=== PATIENT | female | born 2005 | race African-American/Black ===

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

== ENCOUNTER 2023-02-12 13:42 | Emergency (ER) | payer MEDICAID, SELFPAY ==
[2023-02-12 13:43] VITALS: BP 150/136; PULSE 89; RESP 20; TEMP 36.1; O2SAT 100
[2023-02-12 14:52] LABS: Absolute Lymphocyte Count 0.72 X10^3/uL (0.83-4.51); Absolute Neutrophil Count 12.7 X10^3/uL (2.0-7.7); Basophil# 0.04 X10^3/uL; Basophil% 0.3 % (0-1); Hematocrit 37.8 % (37-47); Hemoglobin 13.1 g/dL (12.0-15.0); Lymphocyte # 0.72 X10^3/ul (0.83-4.51); Lymphocyte % 5.2 % (19-41); Mean Corp Hgb Conc 34.7 g/dL (32-36); Mean Corpuscular Volume 92.4 fL (81-99); Mean Platelet Vol. 9.3 fl (6.2-12.0); Monocyte# 0.35 X10^3/uL; Monocyte% 2.5 % (0-10); NRBC Flagged by Analyzer 0 % (0-5); Neutrophil # 12.65 X10^3/uL (2.7-7.7); Neutrophil % 91.4 % (47-70); Platelet Count 294 K/mm3 (150-450); RBC Distribution Width CV 11.8 % (11.6-14.6); Red Blood Count 4.09 M/mm3 (4.2-5.4); White Blood Count 13.8 K/mm3 (4.4-11.0)
[2023-02-12 14:58] LABS: Internal QC Validated? YES +Cl - CLEAR BKGD
--- NOTE | 2023-02-12 14:58 | ED.VIS.FEGU ---
HPI HPI - Female History of Present Illness Chief Complaint: Female C/O Pain Pain: Positive for Pelvic Pain and Vaginal Pain Onset: Days Context: Gradual Onset Timing: Continuous Quality: Positive for Cramping Location: Suprapubic Bleeding Issue: Negative for Vaginal bleeding, Passing clots or Passing tissue Associated Symptoms Associated Symptoms: Positive for Dysuria Test: Positive P: 0 Narrative Narrative: Presents with pelvic pain that became worse today. Patient states she was recently diagnosed as having a miscarriage. Patient states she was approximate 5 weeks . Patient states this was her first . Patient states she has not passed any tissue or clots. Patient does admit to some dysuria. Patient admits to subjective fever. Patient admits to nausea and vomiting. Patient states her pain radiates into her back. Prior similar symptoms: No PFSH PFSH Medical History no medical history no medical history Home Medications ondansetron 4 mg disintegrating tablet 4 mg PO Q8H PRN PRN Nausea #10 tabs 03/02/22 [Rx Last Taken Unknown] ondansetron 4 mg disintegrating tablet 4 mg PO Q8H PRN PRN Nausea #10 tabs 09/04/22 [Rx Last Taken Unknown] hydrocodone-acetaminophen 5-325mg 5mg-325mg 1 tab PO Q6H PRN PRN Pain 3 days #10 TABLETS 02/12/23 [Rx Last Taken Unknown] Allergy/AdvReac Type Severity Reaction Status Date / Time No Known Allergies Allergy Verified 02/12/23 13:43 Surgical History no surgical history no surgical history Social History Smoking Status: Current every day smoker tobacco type: e-cigarettes ROS ROS ED Constitutional Constitutional ED: Reports fever(s) and subjective; Denies chills Eyes Eyes: Denies blurry vision or change in vision ENT ENT ED: Denies rhinorrhea or sore throat Cardiovascular Cardiovascular: Reports chest pain; Denies palpitations Respiratory/Chest Respiratory/Chest: Denies cough or dyspnea Gastrointestinal Gastrointestinal: Reports abdominal pain, nausea and vomiting Genitourinary Genitourinary ED: Reports dysuria; Denies hematuria Musculoskeletal Musculoskeletal: Reports back pain; Denies neck pain Integumentary Denies abscess or rash Neurologic Neurologic: Denies headache(s) or weakness Allergic/Immunologic Allergic/Immunologic ED: Denies mouth swelling or urticaria EXAM Physical Exam Const Vital Signs: 02/12/23 13:43 02/12/23 16:00 Temperature 96.9 F L Temperature Source Temporal Pulse Rate 89 83 Respiratory Rate 20 H 16 Blood Pressure 150/136 H 149/100 H Blood Pressure Mean 140 116 Pulse Ox 100 98 Oxygen Delivery Method Room Air Room Air Positive well nourished and well developed General Appearance ED: well developed HEENT Reports moist mucous membranes Neck supple and no JVD Resp normal respiratory effort and clear to auscultation bilaterally Cardio regular rate and regular rhythm GI normal to inspection, nondistended, normoactive bowel sounds and soft to palpation Palpation: soft and tender LLQ, RLQ and suprapubic Extremity normal to inspection General Extremety ED: Negative for edema or tenderness General Extremity: Negative for edema Neuro oriented x3, CN's II-XII intact bilaterally and no sensory deficits noted Sensorium / Orientation: alert Motor Exam: strength 5/5 throughout Psych mental status grossly normal Skin no rashes or lesions noted MDM MDM MDM Narrative Medical decision making narrative: Differential diagnosis includes threatened miscarriage, incomplete miscarriage, urinary tract infection, pyelonephritis, and ectopic . CBC will be obtained to assess for leukocytosis and anemia. Comprehensive metabolic profile will be obtained to assess for hepatic function, renal function, and electrolyte abnormality. Quantitative hCG will be obtained to assess for level. Urinalysis will be obtained to assess for urinary tract infection or hematuria. Lab Data Attestation: I reviewed the patient's lab results. Lab results narrative: CBC was reviewed. There is a mild leukocytosis of 13.8. The remainder is within normal limits. Comprehensive metabolic profile was reviewed and was essentially within normal limits with the exception of a mildly elevated bilirubin of 1.4. Quantitative hCG was reviewed and was [id number]. Urinalysis was reviewed. There is no evidence of urinary tract infection or hematuria. Labs: Laboratory Results - last 24 hr 02/12/23 02/12/23 14:40 16:50 WBC 13.8 H RBC 4.09 L Hgb 13.1 Hct 37.8 MCV 92.4 MCH 32.0 MCHC 34.7 RDW Std Deviation 40.0 RDW Coeff of Jaclyn 11.8 Plt Count 294 MPV 9.3 Immature Gran % (Auto) 0.600 Neut % (Auto) 91.4 H Lymph % (Auto) 5.2 L [place] % (Auto) 2.5 Eos % (Auto) 0.0 Baso % (Auto) 0.3 Absolute Neuts (auto) 12.7 H Absolute Lymphs (auto) 0.72 L Nucleated RBC % 0 Sodium 136 Potassium 3.4 L Chloride 105 Carbon Dioxide 20.0 L Anion Gap 11 BUN 7 Creatinine 0.77 Est GFR (MDRD) Af Amer 124 Est GFR (MDRD) Non-Af 102 BUN/Creatinine Ratio 9.1 L Glucose 139 H Calcium 10.6 H Total Bilirubin 1.40 H AST 19 ALT 24 Alkaline Phosphatase 59 Total Protein 8.6 H Albumin 4.3 Globulin 4.3 H Albumin/Globulin Ratio 1.0 HCG, Quant 30068 H Serum , Qual POSITIVE H Urine Color Yellow Urine Clarity Sl. Cloudy Urine pH 8.0 Ur Specific [place] 1.010 Urine Protein 30 H Urine Glucose (UA) Normal Urine Ketones 150 A* Urine Occult Blood 150 H Urine Nitrite Negative Urine Bilirubin Negative Urine Urobilinogen Normal Ur Leukocyte Esterase 500 H Urine RBC 0-5 SEEN Urine WBC 0-5 SEEN Ur Squamous Epith Cells 0-5 SEEN Ur Transition Epith Cell 0 SEEN Urine Bacteria 1+ Urine Mucus 0 SEEN Radiography Diagnostic Testing: Clinical Impression(s) from Imaging Studies Obstetrics Ultrasound 02/12/23 16:25 IMPRESSION: Findings consistent with nonviable intrauterine gestation with ultrasound EGA of approximately 7 weeks 1 day. Electronically Signed: Keshawn Villanueva MD at 18:32 EDT , Pelvic ultrasound was obtained. There is a nonviable intrauterine with a gestational age of approximately 7 weeks 1 day. This was interpreted by the radiologist and was also independently reviewed by myself. Treatment and Re-Evaluation Narrative: Patient was given IV fluids. Patient was given 2 doses of morphine and 2 doses of Zofran. Patient was feeling better on reevaluation. Patient was advised of her findings. Patient was given a prescription for a short course of [place]. Patient was instructed to follow-up with her CREATIVE WRITING PROFESSOR in 5 to 7 days. Patient understood and was agreeable with the plan. All questions were answered. Discharge Plan Triage Chief Complaint: Female C/O ED Provider: Levy Vaz Dx/Rx/DC Orders Clinical Impression: Incomplete spontaneous Instructions: ED MISCARRIAGE Incomplete Prescriptions: New hydrocodone-acetaminophen [hydrocodone-acetaminophen] 5-325 mg tablet 1 tab PO Q6H PRN PRN (Reason: Pain) 3 Days Qty: 10 0RF No Action ondansetron [ondansetron] 4 mg tablet,disintegrating 4 mg PO Q8H PRN PRN (Reason: Nausea) Qty: 10 0RF ondansetron [ondansetron] 4 mg tablet,disintegrating 4 mg PO Q8H PRN PRN (Reason: Nausea) Qty: 10 0RF Primary Care Provider: Vargas Barba Referrals: Vargas Barba DO [Primary Care Provider] - 5-7 Days Lizz Rajan DO [Med Staff - Active Staff] - 3-5 Days Disposition Disposition: Home, Self Care
[2023-02-12 14:59] LABS: Pregnancy, Serum, hCG Quali. POSITIVE Negative
[2023-02-12 15:08] LABS: AST(SGOT) 19 U/L (15-37); Alanine Aminotransfer ALT/SGPT 24 U/L (13-56); Albumin, Serum 4.3 g/dL (3.2-5.0); Alkaline Phosphatase 59 U/L (45-117); Anion Gap 11 (5-15); BUN 7 mg/dL (7-18); BUN/Creat Ratio 9.1 RATIO (10-20); Calcium,Total 10.6 mg/dL (8.5-10.1); Chloride 105 mmol/L (98-107); Creatinine, Serum 0.77 mg/dL (0.55-1.02); EST Glomerular Filtration Rate 102 mL/min (>60); Est Glom Filt Rate - Afr Amer 124 mL/min (>60); Globulin 4.3 g/dL (2.2-4.2); Glucose 139 mg/dL (74-106); Potassium 3.4 mmol/L (3.5-5.1); Protein, Total 8.6 g/dL (6.4-8.2); Sodium Level 136 mmol/L (136-145)
[2023-02-12] MEDS: Morphine 4 MG/ML Syringe IV ×2 (15:10→16:36)
[2023-02-12] MEDS: 0.9% Normal Saline 1,000 ML 1000 ML IV (15:10)
[2023-02-12] MEDS: Ondansetron 4 MG/2 ML Vial IV ×2 (15:10→16:35)
[2023-02-12 15:39] LABS: hCG Titer Quant., Serum 43168 mIU/mL (1-3)
[2023-02-12 16:00] VITALS: BP 149/100; PULSE 83; RESP 16; O2SAT 98
--- NOTE | 2023-02-12 16:25 | US_ITS ---
STUDY: FIRST TRIMESTER OBSTETRICAL ULTRASOUND REASON FOR EXAM: Female, 17 years old Pelvic pain LMP: 12/18/2022 TECHNIQUE: Transvaginal TECHNICAL QUALITY: Adequate. PRIOR ULTRASOUND: None. FINDINGS: There is visualization of a single gestational sac in a normal intrauterine position. There is a markedly irregular and heterogeneous endometrium and gestational sac. Mean sac diameter is approximately 2.3 cm, indicating an estimated gestational age (EGA) of 7 weeks, 2 days. The gestational sac shape is markedly heterogeneous. There is no demonstrated yolk sac. The placenta is non-visualized. There is visualization of an embryo with no cardiac activity, consistent with intrauterine demise. The crown-rump length (CRL) measures 1.0, indicating an estimated gestational age (EGA) of 7 weeks, 1 days. The estimated gestation age (EGA) by LMP is 8 weeks, 0 days. The estimated date of delivery (FIDELIA) by LMP is 09/24/2023. The estimated gestation age (EGA) by US is 7 weeks, 2 days. The uterus measures 9.6 x 7.1 x 6.5 cm. There is no demonstrated uterine fibroid. The cervix is closed. There is a 1.2 cm nabothian cyst. The right ovary measures 2.7 x 2.5 x 1.2 cm. There is no right ovarian cyst. There is no visualized right adnexal mass or complex lesion. The left ovary measures 4.0 x 3.1 x 2.8 cm. There is a 1.9 cm cyst. There is no visualized left adnexal mass or complex lesion. There is no fluid in the cul de sac. US/Transvaginal w/Preg US IMPRESSION: Findings consistent with nonviable intrauterine gestation with ultrasound EGA of approximately 7 weeks 1 day. Electronically Signed: Keshawn Villanueva MD at 18:32 EDT ,
[2023-02-12 16:57] LABS: Mucous, Urine 0 SEEN /hpf (<or=2+)
[2023-02-12 17:00] LABS: Color, Urine Yellow (Yellow); Glucose, Dipstick Normal (Normal); Leukocyte Esterase-Dipstick 500 /ul (Negative); Nitrite-Dipstick Negative (Negative); Occult Blood-Urine 150 /ul (Negative); Protein-Dipstick 30 mg/dl (Negative); Urine Bilirubin Dipstick Negative (Negative); Urine Clarity Sl. Cloudy (Clear); Urine Urobilinogen Normal (Normal)
[2023-02-12 17:11] LABS: Ketone-Dipstick 150 mg/dl (Negative)
[2023-02-12 17:23] LABS: Bacteria 1+ /hpf (None Seen); Red Blood Cells-Urine 0-5 SEEN /hpf (0-5); Squamous Epithelial Cells - UA 0-5 SEEN /hpf (5-10); Transitional Epithelial - Ur 0 SEEN /hpf (0-5); White Blood Cells 0-5 SEEN /hpf (0-5)
[2023-02-12 20:00] VITALS: BP 135/89; PULSE 79; RESP 16; O2SAT 99
[2023-02-12 20:55] VITALS: BP 131/86; PULSE 81; RESP 16; O2SAT 99
== END 2023-02-12 21:32 | disposition home or self-care (01) ==
PROVIDERS: Emergency Provider Emergency Medicine; PCP Family Medicine; Visit Provider Emergency Medicine
DX: O03.4 Incomplete spontaneous abortion without complication (principal); O99.331 Smoking (tobacco) complicating pregnancy, first trimester; F17.290 Nicotine dependence, other tobacco product, uncomplicated; Z3A.01 Less than 8 weeks gestation of pregnancy
CPT/HCPCS: 76817; 80053; 81001; 84702; 84703; 85025; 96361; 96374; 96375; 96376; 99283; J7030; A4216; J2405

== ENCOUNTER 2024-09-16 05:53 | Emergency (ER) | payer SELFPAY ==
[2024-09-16 05:55] VITALS: BP 143/87; PULSE 88; RESP 18; TEMP 36.2; O2SAT 97; BMI 20.7
--- NOTE | 2024-09-16 06:15 | EDS_ITS ---
HPI History of Present Illness Chief Complaint: Nausea/Vomiting Narrative Narrative: Patient is a 19-year-old female with no known significant past medical history who presents to the [facility] part with chief complaint of nausea vomiting for the last 24 hours. 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 Patient denies any previous abdominal surgeries. Cording to family was at bedside they states that she has been vomiting nonstop for the last 24 hours unable to keep anything down. [facility] Medical History History of miscarriage Home Medications ?Medication ?Instructions ?Recorded ?Last Taken ?Type cephalexin 500 mg capsule 500 mg PO BID 5 days #10 cap s 09/16/24 Unknown Rx ondansetron 4 mg disintegrating 4 mg PO Q6H PRN nausea and 09/16/24 Unknown Rx tablet vomiting #20 tabs Allergy/AdvReac Type Severity Reaction Status Date / Time No Known Allergies Allergy Verified 09/16/24 05:54 Family History no significant family his Surgical History no surgical history Social History Smoking Status: Current every day smoker tobacco type: e-cigarettes ROS ROS ED ROS Narrative Constitutional: Denies fevers, chills, headaches, lightness, dizziness Eyes: Denies change in vision double vision blurry vision Cardiovascular: Denies chest pain Respiratory: Denies shortness of breath Abdomen: Complains of nausea vomiting as noted above as well as abdominal discomfort denies diarrhea : Denies urinary symptoms denies any vaginal spotting or discharge Neurological: Denies numbness, weakness, tingling Musculoskeletal: Denies back pain Skin: Denies rashes or lesions EXAM Physical Exam Narrative Exam Narrative: General: Patient lying in bed rest comfortably appear to be in acute distress Head: Atraumatic, normocephalic Eyes: PERRL bilateral, EOMI bilateral, no conjunctival injection noted Neck: Soft, supple, trachea midline Cardiovascular: Regular rate and rhythm no murmurs gallops rubs noted Respiratory: Clear to auscultation bilaterally Abdomen: Soft, diffuse tenderness palpation no rebound or guarding on exam Extremities: +5/5 strength noted in the bilateral upper and lower extremities, radial pulse +2/4 in the bilateral extremities, no pedal edema on exam Neurological: Patient is following commands knew that she was at [facility] years 2024 Skin: Warm, dry, intact no rashes or lesions noted Const Vital Signs: 09/16/24 05:55 Temperature 97.1 F L Temperature Source Temporal Pulse Rate 88 Respiratory Rate 18 Blood Pressure 143/87 H Blood Pressure Mean 105 Pulse Ox 97 Oxygen Delivery Method Room Air MDM MDM MDM Narrative Medical decision making narrative: Patient is a 19-year-old female who presented to the emergency department with chief complaint of nausea vomiting for the last 24 hours. On the differential diagnose includes but not limited to COVID, flu, other viral gastroenteritis, . Once workup is obtained reviewed she will be reevaluated. Patient be given IV fluids morphine Zofran. Patient's CBC was significant for leukocytosis of 13,000, hemoglobin 13.8, plate count was noted to be 267. Patient sodium normal 136, potassium normal at 3.4, creatinine was noted to be 0.73. Patient's AST and ALT were 32 and 31 respectively, total bilirubin normal at 1.04. Patient's lipase normal 36, urinalysis showed 150 ketones, 25 leukocyte esterase micro pending at this point in time. Patient's test was positive. We will forego CT imaging at this point in time given her positive test. Patient tested negative for COVID flu and RSV. Patient's microscopic exam returned on her urinalysis which showed 0-5 white cells with 5-10 squamous epithelial cells however she had 2+ bacteria therefore she will be placed on Keflex. This will be sent for culture. On reevaluation the patient she is feeling much improved and would like to go home at this point in time. She was advised to start taking vitamins RUSS and follow-up with her SUPERVISOR OPERATIONS in outpatient setting. She is encouraged return with worsening symptoms or concerns. She is agreeable this plan all question concerns answered she was discharged home in stable condition. Lab Data Labs: Laboratory Results - last 24 hr 09/16/24 09/16/24 06:06 07:00 WBC 13.2 H RBC 4.34 Hgb 13.8 Hct 38.3 MCV 88.2 MCH 31.8 MCHC 36.0 RDW Std Deviation 39.3 RDW Coeff of Jaclyn 12.1 Plt Count 267 MPV 9.4 Immature Gran % (Auto) 0.500 Neut % (Auto) 88.9 H Lymph % (Auto) 6.5 L [place] % (Auto) 3.9 Eos % (Auto) 0.0 Baso % (Auto) 0.2 Absolute Neuts (auto) 11.8 H Absolute Lymphs (auto) 0.86 Nucleated RBC % 0 Sodium 136 Potassium 3.4 Chloride 99 Carbon Dioxide 20.5 L Anion Gap 16 H BUN 11 Creatinine 0.73 Estim Creat Clear Calc 126.25 Est GFR (MDRD) Non-Af 120 BUN/Creatinine Ratio 14.3 Glucose 107 H Calcium 9.8 Total Bilirubin 1.04 AST 32 ALT 31 Alkaline Phosphatase 74 Total Protein 8.4 Albumin 5.1 H Globulin 3.3 Albumin/Globulin Ratio 1.5 Lipase 36 Serum , Qual POSITIVE Urine Color Yellow Urine Clarity Sl. Cloudy Urine pH 6.0 Ur Specific [place] 1.020 Urine Protein 100 H Urine Glucose (UA) Normal Urine Ketones 150 A* Urine Occult Blood 25 H Urine Nitrite Negative Urine Bilirubin Negative Urine Urobilinogen Normal Ur Leukocyte Esterase 25 H Discharge Plan Triage Chief Complaint: Nausea/Vomiting ED Provider: Zenon Patterson Dx/Rx/DC Orders Clinical Impression: Nausea & vomiting, Prescriptions: New ondansetron 4 mg tablet,disintegrating 4 mg PO Q6H PRN (Reason: nausea and vomiting) Qty: 20 0RF cephalexin 500 mg capsule 500 mg PO BID 5 Days Qty: 10 0RF Stand Alone Forms: ED Work / School Excuse Primary Care Provider: Vargas Barba Referrals: Vargas Barba, DO [Primary Care Provider] - Activity Restrictions/Additional Instructions: Your test was positive here today. Start taking vitamins. Follow-up with your SUPERVISOR OPERATIONS in the outpatient setting. Return with worsening symptoms or concerns. Use Zofran as needed for nausea and vomiting that was sent to your pharmacy. Take the Keflex as prescribed for bacteria in your urine in the setting of follow-up and urine culture with your doctor as well. Print Language: Maldivian Disposition Disposition: Home, Self Care
[2024-09-16] MEDS: 0.9% Normal Saline (1000mL) 1,000 ML 999 ML IV (06:21)
[2024-09-16] MEDS: Morphine 4 MG/ML Syringe IV (06:21)
[2024-09-16] MEDS: Ondansetron 4 MG/2 ML Vial IV (06:21)
[2024-09-16 06:38] LABS: Absolute Lymphocyte Count 0.86 X10^3/uL (0.83-4.51); Absolute Neutrophil Count 11.8 X10^3/uL (2.0-7.7); Basophil# 0.02 X10^3/uL; Basophil% 0.2 % (0-1); Hematocrit 38.3 % (37-47); Hemoglobin 13.8 g/dL (12.0-15.0); Lymphocyte # 0.86 X10^3/ul (0.83-4.51); Lymphocyte % 6.5 % (19-41); Mean Corpuscular Hgb 31.8 pg (27.0-32.0); Mean Corpuscular Volume 88.2 fL (81-99); Mean Platelet Vol. 9.4 fl (6.2-12.0); Monocyte# 0.52 X10^3/uL; Monocyte% 3.9 % (0-10); NRBC Flagged by Analyzer 0 % (0-5); Neutrophil # 11.77 X10^3/uL (2.7-7.7); Neutrophil % 88.9 % (47-70); Platelet Count 267 K/mm3 (150-450); RBC Distribution Width CV 12.1 % (11.6-14.6); RBC Distribution Width SD 39.3 fl (35.1-43.9); Red Blood Count 4.34 M/mm3 (4.2-5.4); White Blood Count 13.2 K/mm3 (4.4-11.0)
[2024-09-16 06:44] LABS: Internal QC Validated? YES +Cl - CLEAR BKGD
[2024-09-16 06:45] LABS: Pregnancy, Serum, hCG Quali. POSITIVE Negative
[2024-09-16 07:22] LABS: Lipase 36 U/L (13-75)
[2024-09-16 07:29] LABS: Color, Urine Yellow (Yellow); Glucose, Dipstick Normal (Normal); Leukocyte Esterase-Dipstick 25 /ul (Negative); Nitrite-Dipstick Negative (Negative); Occult Blood-Urine 25 /ul (Negative); Protein-Dipstick 100 mg/dl (Negative); Urine Bilirubin Dipstick Negative (Negative); Urine Clarity Sl. Cloudy (Clear); Urine Urobilinogen Normal (Normal)
[2024-09-16 07:31] LABS: ALB/GLOB Ratio 1.5 RATIO (0.9-2.4); AST(SGOT) 32 U/L (<=31); Alanine Aminotransfer ALT/SGPT 31 U/L (<=34); Albumin, Serum 5.1 g/dL (3.5-5.0); Alkaline Phosphatase 74 U/L (35-104); Anion Gap 16 (5-15); BUN 11 mg/dL (4-19); BUN/Creat Ratio 14.3 RATIO (10-20); Calcium,Total 9.8 mg/dL (7.6-11.0); Carbon Dioxide 20.5 mmol/L (21.0-32.0); Chloride 99 mmol/L (98-108); Creatinine, Serum 0.73 mg/dL (0.70-1.20); EST Glomerular Filtration Rate 120 (>60); Estimated Creatinine Clearance 126.25 ml/min (50-250); Globulin 3.3 g/dL (2.2-4.2); Glucose 107 mg/dL (70-99); Potassium 3.4 mmol/L (3.3-5.1); Protein, Total 8.4 g/dL (5.9-8.4); Sodium Level 136 mmol/L (133-145); Total Bilirubin 1.04 mg/dL (0.00-1.30)
[2024-09-16 07:40] LABS: Ketone-Dipstick 150 mg/dl (Negative)
[2024-09-16 07:43] LABS: Bacteria 2+ /hpf (None Seen); Mucous, Urine 1+ /hpf (<or=2+); Red Blood Cells-Urine 0-5 SEEN /hpf (0-5); Squamous Epithelial Cells - UA 5-10 SEEN /hpf (5-10); White Blood Cells 0-5 SEEN /hpf (0-5)
[2024-09-16 07:46] VITALS: BP 110/66; PULSE 70; RESP 16; TEMP 36.6; O2SAT 100
== END 2024-09-16 07:51 | disposition home or self-care (01) ==
PROVIDERS: Emergency Provider Emergency Medicine; PCP Family Medicine; Visit Provider Emergency Medicine
DX: O21.9 Vomiting of pregnancy, unspecified (principal); O99.891 Other specified diseases and conditions complicating pregnancy; R82.71 Bacteriuria; O99.330 Smoking (tobacco) complicating pregnancy, unspecified trimester; F17.290 Nicotine dependence, other tobacco product, uncomplicated; Z3A.00 Weeks of gestation of pregnancy not specified
CPT/HCPCS: 80053; 81001; 83690; 84703; 85025; 87086; 87088; 87631; 96361; 96374; 96375; 99283; A4216; J2405

== ENCOUNTER 2024-11-08 06:25 | Emergency (ER) | payer MEDICAID, SELFPAY ==
[2024-11-08 06:27] VITALS: BP 127/82; PULSE 88; RESP 16; TEMP 37.2; O2SAT 100; BMI 20.9
--- NOTE | 2024-11-08 06:47 | ED.VIS.FEGU ---
HPI HPI - Female History of Present Illness Chief Complaint: Vag Bld, Preg Informant: patient and spouse/S.O. Narrative Narrative: Patient is a G2, P0 with 1 spontaneous miscarriage and no other past medical history. She states she is roughly 14 weeks . She states she has followed up with her GRID CASTING MACHINE OPERATOR HELPER previously and had an ultrasound confirming intrauterine . She states that she went to bed normally last night and then awoke this morning and felt like her underwear was slightly wet. She states when she checked there was watery pink blood present in the underwear. She states that since that initial report of bleeding that there has been no further episodes or no worsening. She denies any recent vaginal trauma that could have led to a laceration. She states there is been no dysuria. She denies any abdominal discomfort. She denies any history of bleeding disorder or blood thinner use. However as she has had a miscarriage in the past and the small amount of bleeding she was concerned for a repeat miscarriage and therefore comes in for evaluation Of note patient does have an GRID CASTING MACHINE OPERATOR HELPER appointment at 930 this morning [facility] Medical History History of miscarriage Home Medications ?Medication ?Instructions ?Recorded ?Last Taken ?Type NK 11/08/24 Unknown History Allergy/AdvReac Type Severity Reaction Status Date / Time No Known Allergies Allergy Verified 11/08/24 06:29 Family History no significant family his Surgical History no surgical history Social History Smoking Status: Current every day smoker tobacco type: e-cigarettes ROS ROS ED Constitutional Constitutional ED: Denies chills or fever(s) ENT ENT ED: Denies sore throat Cardiovascular Cardiovascular: Denies chest pain Respiratory/Chest Respiratory/Chest: Denies cough or dyspnea Gastrointestinal Gastrointestinal: Denies abdominal pain, diarrhea, nausea or vomiting Genitourinary Genitourinary ED: Reports other Details: Positive vaginal bleeding ; Denies dysuria Musculoskeletal Musculoskeletal: Denies myalgias Integumentary Denies rash Neurologic Neurologic: Denies headache(s) Hematologic/Lymphatic Hematologic/Lymphatic: Denies easy bleeding or easy bruising EXAM Physical Exam Const Vital Signs: 11/08/24 06:27 Temperature 99.0 F Temperature Source Oral Pulse Rate 88 Respiratory Rate 16 Blood Pressure 127/82 H Blood Pressure Mean 97 Pulse Ox 100 Oxygen Delivery Method Room Air Positive well nourished and well developed General Appearance ED: well developed; Negative for pallor HEENT HEENT Narrative: Normocephalic atraumatic Eyes PERRL and EOMs intact bilaterally General Eye ED: Negative for pale conjunctiva or scleral icterus Neck supple Neck Narrative: No nuchal rigidity or meningeal signs Resp normal respiratory effort and clear to auscultation bilaterally Cardio regular rate and regular rhythm GI non-tender and non-distended GI Narrative: Abdomen soft nontender nondistended with normal active bowel sounds The abdomen is gravid with fundus consistent with reported gestational age Auscultation: normoactive bowel sounds Palpation: soft Narrative: Patient deferred Back/Spine no CVA tenderness Extremity normal to inspection and full ROM Extremity Narrative: Negative Homans' sign bilaterally Neuro oriented x3 and CN's II-XII intact bilaterally Sensorium / Orientation: alert Motor Exam: strength 5/5 throughout Psych mental status grossly normal Skin no rashes or lesions noted Skin Narrative: Capillary refills less than 3 seconds General Skin Exam: Negative for pallor MDM MDM MDM Narrative Medical decision making narrative: Patient presented to the ER with stable vitals. She reported that there was a small amount of light moore blood within her underwear this morning. However there has been no passage of large clots or persistent hemorrhage. Therefore the diagnosis is for a threatened versus spontaneous miscarriage versus subchorionic hemorrhage. She denies any dysuria going against UTI or hemorrhagic cystitis. Secondary to her previous history of miscarriage did elect to check basic labs. A bedside ultrasound was performed by myself and shows a single IUP with heartbeat of approximately 150 bpm. I discussed with patient that we could perform laboratory studies as well as a formal ultrasound to ensure that the is progressing normally and that most likely the bleeding is from something simple like a subchorionic hemorrhage. She states she has an appointment with her GRID CASTING MACHINE OPERATOR HELPER in just a few hours. As the bedside ultrasound is confirming that the baby still has a heartbeat and it is in the normal range and she is not having persistent bouts of bleeding she states she would prefer to have the lab work obtained but then be discharged so she can follow-up with her GRID CASTING MACHINE OPERATOR HELPER and they can reassess her and reviewed the labs that were obtained in the ER. As patient's vitals are stable she is no longer having bleeding and bedside ultrasound does confirm a single IUP with normal heartbeat and she is below 20 weeks so there is no further intervention that can be performed I feel this is a acceptable option and therefore should be discharged and advised to keep her GRID CASTING MACHINE OPERATOR HELPER appointment for later this morning. History & Record Review Discussion w/independent historian: Patient and Significant other Discharge Plan Triage Chief Complaint: Vag Bld, Preg ED Provider: Sina Shearer Dx/Rx/DC Orders Clinical Impression: Vaginal bleeding during Instructions: Vaginal Bleeding During Prescriptions: No Action NK Primary Care Provider: Vargas Barba Referrals: Vargas Barba DO [Primary Care Provider] - Maricel Reyes DYNAMIC BALANCER, DYNAMIC BALANCER-C [Non-Staff] - Activity Restrictions/Additional Instructions: Please follow-up with your GRID CASTING MACHINE OPERATOR HELPER later this morning as you already have scheduled. Discussed with them obtaining a formal ultrasound based on your symptoms. They can review the blood work that was obtained in the ER today. If before your appointment you have severe abdominal pain or passage of a large amount of blood or clots then please return for repeat evaluation otherwise you may keep your appointment as previously scheduled. Print Language: Faroese Disposition Disposition: Home, Self Care
[2024-11-08 06:57] VITALS: PULSE 82; RESP 18; O2SAT 97
[2024-11-08 07:08] LABS: Absolute Lymphocyte Count 1.32 X10^3/uL (0.83-4.51); Absolute Neutrophil Count 8.3 X10^3/uL (2.0-7.7); Basophil# 0.03 X10^3/uL; Basophil% 0.3 % (0-1); Eosinophil# 0.05 X10^3/uL; Eosinophils% 0.5 % (0-5); Hemoglobin 13.2 g/dL (12.0-15.0); Lymphocyte # 1.32 X10^3/ul (0.83-4.51); Mean Corp Hgb Conc 34.7 g/dL (32-36); Mean Corpuscular Hgb 31.8 pg (27.0-32.0); Mean Corpuscular Volume 91.6 fL (81-99); Mean Platelet Vol. 9.5 fl (6.2-12.0); Monocyte# 0.32 X10^3/uL; Monocyte% 3.2 % (0-10); NRBC Flagged by Analyzer 0 % (0-5); Neutrophil # 8.34 X10^3/uL (2.7-7.7); Neutrophil % 82.4 % (47-70); Platelet Count 251 K/mm3 (150-450); RBC Distribution Width CV 12.4 % (11.6-14.6); RBC Distribution Width SD 41.4 fl (35.1-43.9); Red Blood Count 4.15 M/mm3 (4.2-5.4); White Blood Count 10.1 K/mm3 (4.4-11.0)
[2024-11-08 07:28] LABS: Anion Gap 12 (5-15); BUN 6 mg/dL (4-19); BUN/Creat Ratio 10.9 RATIO (10-20); Calcium,Total 9.3 mg/dL (7.6-11.0); Carbon Dioxide 21.8 mmol/L (21.0-32.0); Chloride 103 mmol/L (98-108); Creatinine, Serum 0.56 mg/dL (0.70-1.20); EST Glomerular Filtration Rate 133 (>60); Estimated Creatinine Clearance 170.59 ml/min (50-250); Glucose 121 mg/dL (70-99); Potassium 3.8 mmol/L (3.3-5.1); Sodium Level 137 mmol/L (133-145)
[2024-11-08 07:54] LABS: hCG Titer Quant., Serum 51606 mIU/mL (<9 non-preg)
== END 2024-11-08 07:01 | disposition home or self-care (01) ==
LOC: ED 06:58
PROVIDERS: Emergency Provider Emergency Medicine; PCP Family Medicine; Visit Provider Emergency Medicine
DX: O20.9 Hemorrhage in early pregnancy, unspecified (principal); O99.332 Smoking (tobacco) complicating pregnancy, second trimester; F17.290 Nicotine dependence, other tobacco product, uncomplicated; Z87.59 Personal history of other complications of pregnancy, childbirth and the puerperium; Z3A.14 14 weeks gestation of pregnancy
CPT/HCPCS: 80048; 84702; 85025; 86900; 86901; 99283; A4216

== ENCOUNTER 2024-11-20 04:39 | Emergency (ER) | payer MEDICAID, SELFPAY ==
[2024-11-20 04:41] VITALS: BP 107/70; PULSE 99; RESP 16; TEMP 36.5; O2SAT 100; BMI 20.5
[2024-11-20] MEDS: Ondansetron 4 MG/2 ML Vial IV ×2 (04:53→08:05)
[2024-11-20] MEDS: 0.9% Normal Saline (1000mL) 1,000 ML 999 ML IV ×2 (04:53→06:12)
[2024-11-20 05:00] LABS: Absolute Lymphocyte Count 1.41 X10^3/uL (0.83-4.51); Absolute Neutrophil Count 13.2 X10^3/uL (2.0-7.7); Basophil# 0.03 X10^3/uL; Basophil% 0.2 % (0-1); Eosinophil# 0.01 X10^3/uL; Eosinophils% 0.1 % (0-5); Hematocrit 37.7 % (37-47); Hemoglobin 13.3 g/dL (12.0-15.0); Lymphocyte # 1.41 X10^3/ul (0.83-4.51); Lymphocyte % 9.3 % (19-41); Mean Corp Hgb Conc 35.3 g/dL (32-36); Mean Corpuscular Hgb 32.1 pg (27.0-32.0); Mean Corpuscular Volume 91.1 fL (81-99); Mean Platelet Vol. 9.3 fl (6.2-12.0); Monocyte# 0.48 X10^3/uL; Monocyte% 3.2 % (0-10); NRBC Flagged by Analyzer 0 % (0-5); Neutrophil # 13.22 X10^3/uL (2.7-7.7); Neutrophil % 86.7 % (47-70); Platelet Count 283 K/mm3 (150-450); RBC Distribution Width CV 12.3 % (11.6-14.6); RBC Distribution Width SD 40.9 fl (35.1-43.9); Red Blood Count 4.14 M/mm3 (4.2-5.4); White Blood Count 15.2 K/mm3 (4.4-11.0)
--- NOTE | 2024-11-20 05:02 | EX.ED.DYSGE1 ---
HPI History of Present Illness Chief Complaint: Nausea/Vomiting Narrative Narrative: Patient is a 19-year-old female currently 16 weeks who presented to the emergency department the chief complaint of nausea vomiting. Patient states that she has been nauseous throughout her she states that she followed up with [employer] in the outpatient setting. She notes that she was originally prescribed Zofran however she states that she has run out of this. Patient notes left last 2 days she has been vomiting persistently not keep anything down. Patient tonight also came in secondary to shoulder pain she states that she felt a pop while vomiting and states that she has severe pain in her left shoulder. Patient rates her pain a 6 out of 10. [facility] Medical History History of miscarriage Home Medications ?Medication ?Instructions ?Recorded ?Last Taken ?Type cephalexin 500 mg capsule 500 mg PO BID 5 days #10 caps 11/20/24 Unknown Rx ondansetron 4 mg disintegrating 4 mg PO Q6H PRN nausea and 11/20/24 Unknown Rx tablet vomiting #20 tabs Allergy/AdvReac Type Severity Reaction Status Date / Time No Known Allergies Allergy Verified 11/20/24 04:40 Social History Smoking Status: Current every day smoker tobacco type: e-cigarettes ROS ROS ED ROS Narrative Constitutional: Denies any fevers, chills, headaches, lightness, dizziness Eyes: Denies change in vision double vision blurred vision Cardiovascular: Denies chest pain Respiratory: Denies shortness of breath Abdomen: Complains of nausea vomiting as noted above denies abdominal pain : Denies urinary symptoms Neurological: Denies numbness, weakness, tingling Musculoskeletal: Complains of left shoulder pain as noted above Skin: Denies any rashes or lesions EXAM Physical Exam Narrative Exam Narrative: General: Patient lying in bed rest comfortably do not appear to be acute distress Head: Atraumatic, normocephalic Eyes: PERRL bilateral, EOMI bilateral, no conjunctival injection noted Neck: Soft, supple, trachea midline Cardiovascular: Regular rate and rhythm Abdomen: Soft, nondistended, no tenderness palpation Extremities: +5/5 strength noted in the bilateral upper and lower extremities Neurological: Patient follow commands and that she was at [facility] years 2024 Skin: Warm, dry, intact no rashes or lesions noted Const Vital Signs: 11/20/24 04:41 11/20/24 06:40 Temperature 97.7 F L 98.8 F Temperature Source Axillary Oral Pulse Rate 99 93 Respiratory Rate 16 14 Blood Pressure 107/70 104/53 L Blood Pressure Mean 82 70 Pulse Ox 100 100 Oxygen Delivery Method Room Air Room Air MDM MDM MDM Narrative Medical decision making narrative: Patient is a 19-year-old female who presents to the emerged part with a chief complaint of nausea vomiting and left shoulder pain. On the differential diagnose includes but not limited to shoulder dislocation, musculoskeletal strain, nausea vomiting send , electrolyte abnormality., UTI. Once workup is obtained reviewed she will be reevaluated. Patient be given IV fluids and Zofran. Patient given another liter of IV fluids. Patient's CBC reviewed was significant for leukocytosis of 15,000, hemoglobin 13.3, plate count 283. Patient sodium normal 130, potassium normal at 3.7, creatinine was 0.7. Patient's AST and ALT normal at 20 and 10 respectively total bilirubin normal at 0.78. Patient lipase normal at 17. Patient's urinalysis was significant for ketones of 150, 500 leukocyte esterase with 0-5 white cells however 1+ bacteria. We will treat this with asymptomatic bacteria in she will be given her first dose of Keflex here this will be sent to the pharmacy. Patient x-ray of her shoulder reviewed and showed no acute fracture dislocations. Reevaluation the patient she is feeling better she would like to go home at this point time. I discussed results with the patient and she was also advised to take the Zofran that was prescribed to her as well as needed for nausea. She is advised to follow-up with her [employer] in the outpatient setting. She is encouraged return with worsening symptoms or concerns. All question concerns answered she was discharged home in stable condition. Lab Data Labs: Laboratory Results - last 24 hr 11/20/24 11/20/24 04:46 05:55 WBC 15.2 H RBC 4.14 L Hgb 13.3 Hct 37.7 MCV 91.1 MCH 32.1 H MCHC 35.3 RDW Std Deviation 40.9 RDW Coeff of Jaclyn 12.3 Plt Count 283 MPV 9.3 Immature Gran % (Auto) 0.500 Neut % (Auto) 86.7 H Lymph % (Auto) 9.3 L [place] % (Auto) 3.2 Eos % (Auto) 0.1 Baso % (Auto) 0.2 Absolute Neuts (auto) 13.2 H Absolute Lymphs (auto) 1.41 Nucleated RBC % 0 Sodium 138 Potassium 3.7 Chloride 101 Carbon Dioxide 20.6 L Anion Gap 16 H BUN 8 Creatinine 0.70 Estim Creat Clear Calc 133.93 Est GFR (MDRD) Non-Af 126 BUN/Creatinine Ratio 11.6 Glucose 127 H Calcium 9.7 Total Bilirubin 0.78 AST 20 ALT 10 Alkaline Phosphatase 57 Total Protein 8.1 Albumin 4.7 Globulin 3.4 Albumin/Globulin Ratio 1.4 Lipase 17 Urine Color Yellow Urine Clarity Cloudy Urine pH 6.0 Ur Specific [place] 1.020 Urine Protein 100 H Urine Glucose (UA) Normal Urine Ketones 150 A* Urine Occult Blood 25 H Urine Nitrite Negative Urine Bilirubin Negative Urine Urobilinogen Normal Ur Leukocyte Esterase 500 H Urine RBC 0 SEEN Urine WBC 0-5 SEEN Ur Squamous Epith Cells 25-50 SEEN Urine Bacteria 1+ Urine Mucus 1+ Radiography Diagnostic Testing: Clinical Impression(s) from Imaging Studies Shoulder X-Ray 11/20/24 05:15 IMPRESSION: Study appears within limits as above. Reading Location: [facility] Discharge Plan Triage Chief Complaint: Nausea/Vomiting ED Provider: Zenon Patterson Dx/Rx/DC Orders Clinical Impression: Nausea and vomiting during , Asymptomatic bacteriuria during Prescriptions: New ondansetron 4 mg tablet,disintegrating 4 mg PO Q6H PRN (Reason: nausea and vomiting) Qty: 20 0RF cephalexin 500 mg capsule 500 mg PO BID 5 Days Qty: 10 0RF Primary Care Provider: Vargas Barba Referrals: Vargas Barba, DO [Primary Care Provider] - Activity Restrictions/Additional Instructions: Take antibiotics as prescribed. The Zofran as prescribed. Return with worsening symptoms or concerns. Follow-up on urine culture with your doctor to ensure that you are on the appropriate antibiotic for your asymptomatic bacteria in the setting of Print Language: Swazi Disposition Disposition: Home, Self Care
--- NOTE | 2024-11-20 05:15 | RAD_ITS ---
PROCEDURE: SHOULDER MIN 2 VIEWS 11/20/2024 REASON FOR EXAM: PAIN TECHNIQUE: Four views left shoulder COMPARISON: None available FINDINGS: No fracture or dislocation. The joint spaces appear within limits. Acromioclavicular joint appears intact. Visualized left lung appears clear. RAD/Shoulder min 2 Views IMPRESSION: Study appears within limits as above. Reading Location: [id number]
[2024-11-20 05:55] LABS: ALB/GLOB Ratio 1.4 RATIO (0.9-2.4); AST(SGOT) 20 U/L (<=31); Alanine Aminotransfer ALT/SGPT 10 U/L (<=34); Albumin, Serum 4.7 g/dL (3.5-5.0); Alkaline Phosphatase 57 U/L (35-104); Anion Gap 16 (5-15); BUN 8 mg/dL (4-19); BUN/Creat Ratio 11.6 RATIO (10-20); Calcium,Total 9.7 mg/dL (7.6-11.0); Carbon Dioxide 20.6 mmol/L (21.0-32.0); Chloride 101 mmol/L (98-108); EST Glomerular Filtration Rate 126 (>60); Estimated Creatinine Clearance 133.93 ml/min (50-250); Globulin 3.4 g/dL (2.2-4.2); Glucose 127 mg/dL (70-99); Lipase 17 U/L (13-75); Potassium 3.7 mmol/L (3.3-5.1); Protein, Total 8.1 g/dL (5.9-8.4); Sodium Level 138 mmol/L (133-145); Total Bilirubin 0.78 mg/dL (0.00-1.30)
[2024-11-20] MEDS: Acetaminophen 500 MG Tablet 1000 MG PO (06:12)
[2024-11-20 06:27] LABS: Red Blood Cells-Urine 0 SEEN /hpf (0-5)
[2024-11-20 06:40] VITALS: BP 104/53; PULSE 93; RESP 14; TEMP 37.1; O2SAT 100
[2024-11-20 06:53] LABS: Color, Urine Yellow (Yellow); Glucose, Dipstick Normal (Normal); Leukocyte Esterase-Dipstick 500 /ul (Negative); Nitrite-Dipstick Negative (Negative); Occult Blood-Urine 25 /ul (Negative); Protein-Dipstick 100 mg/dl (Negative); Urine Bilirubin Dipstick Negative (Negative); Urine Clarity Cloudy (Clear); Urine Urobilinogen Normal (Normal)
[2024-11-20 07:28] LABS: Ketone-Dipstick 150 mg/dl (Negative)
[2024-11-20 07:36] LABS: Bacteria 1+ /hpf (None Seen); Mucous, Urine 1+ /hpf (<or=2+); Squamous Epithelial Cells - UA 25-50 SEEN /hpf (5-10); White Blood Cells 0-5 SEEN /hpf (0-5)
[2024-11-20] MEDS: Cephalexin 250 MG Capsule 500 MG PO (08:02)
[2024-11-20 08:08] VITALS: BP 98/62; PULSE 67; RESP 18; TEMP 36.9; O2SAT 100
== END 2024-11-20 08:25 | disposition home or self-care (01) ==
PROVIDERS: Emergency Provider Emergency Medicine; PCP Family Medicine; Visit Provider Emergency Medicine
DX: O21.9 Vomiting of pregnancy, unspecified (principal); O99.891 Other specified diseases and conditions complicating pregnancy; M25.512 Pain in left shoulder; R82.71 Bacteriuria; O99.332 Smoking (tobacco) complicating pregnancy, second trimester; F17.290 Nicotine dependence, other tobacco product, uncomplicated; Z3A.16 16 weeks gestation of pregnancy
CPT/HCPCS: 73030; 80053; 81001; 83690; 85025; 87086; 87088; 96361; 96374; 96376; 99282; A4216; J2405

== ENCOUNTER 2025-05-02 18:43 | Outpatient (CLI) | payer MEDICAID, SELFPAY ==
[2025-05-02 18:49] VITALS: BMI 25.5
[2025-05-02 19:04] VITALS: BP 125/85; PULSE 70; PULSE 84; RESP 16; TEMP 36.6; O2SAT 99
--- NOTE | 2025-05-07 11:00 | OB.TRI.NOTE ---
HPI - General HPI Narrative ANTWAN WHITE, is a 20 F who presents [ at 39w5d with FIDELIA 05/04. Presenting for bleeding. ] PFSH PFSH Medical History History of miscarriage Home Medications ?Medication ?Instructions ?Recorded ?Last Taken ?Type ferrous sulfate 325 mg (65 mg 325 mg PO DAILY 05/02/25 05/02/25 13:13 History iron) tablet (Feosol) pantoprazole 20 mg tablet,delayed 20 mg PO DAILY 05/02/25 05/02/25 13:13 History release (Protonix) vit no.95-ferrous 1 tab PO DAILY 05/02/25 05/02/25 13:13 History fumarate 28 mg-folic acid 800 mcg tablet () acetaminophen 500 mg tablet 1,000 mg (2 x 500 mg) PO Q6H PRN 05/05/25 Unknown Rx PRN Pain 1-10 Or Fever #0 tabs ibuprofen 600 mg tablet 600 mg PO Q6H PRN PRN Pain Score 05/05/25 Unknown Rx 1-10 #0 tabs Allergy/AdvReac Type Severity Reaction Status Date / Time No Known Allergies Allergy Verified 05/03/25 13:10 Social History Smoking Status: Current every day smoker tobacco type: e-cigarettes History 1 Elective abortions Hx Para 0 Spontaneous abortions Hx # Term Pregnancies Ectopic pregnancies Hx # Pregnancies Multiple births # of living children NST FHR Rate Baby A Baseline: 115 Variability:: Moderate Accelerations:: 15 x 15 Decelerations:: Variable NST Reactive:: Yes Uterine Activity:: Irregular Assessment & Plan (1) Bleeding in early : PLAN: Plan 1) NST reactive 2) No bright red vaginal bleeding and no signs of labor 3) D/C home and reviewed when to call.
== END 2025-05-02 19:57 | disposition home or self-care (01) ==
LOC: WPOUT 18:45 → WP 18:46
PROVIDERS: PCP Family Medicine; Referring Provider Advanced Practice Midwife; Visit Provider Advanced Practice Midwife
DX: O46.93 Antepartum hemorrhage, unspecified, third trimester (principal); O99.333 Smoking (tobacco) complicating pregnancy, third trimester; F17.290 Nicotine dependence, other tobacco product, uncomplicated; O76 Abnormality in fetal heart rate and rhythm complicating labor and delivery; Z3A.39 39 weeks gestation of pregnancy; Z87.59 Personal history of other complications of pregnancy, childbirth and the puerperium
CPT/HCPCS: 59025; 59050; G0378 ×2; 99221

== ENCOUNTER 2025-05-03 13:10 | Inpatient (IN) | payer MEDICAID, SELFPAY ==
[2025-05-03] VITALS (51 sets, daily range): BP systolic 113–137; BP diastolic 61–89; PULSE 65–139; RESP 15–18; TEMP 36.8–37.2; O2SAT 63–100; BMI 25.5
[2025-05-03] MEDS: Lactated Ringers 1,000 ML 999 ML IV (14:03)
[2025-05-03] MEDS: Penicillin G Pot 5,000,000 UNITS in 0.9% Normal Saline (100mL MB+) 100 ML 150 UNITS IV (14:04)
[2025-05-03 14:11] LABS: Hematocrit 36.2 % (37-47); Hemoglobin 12.0 g/dL (12.0-15.0); Immature Granulocytes Count 0.100 X10^3/uL (0.0-0.0); Mean Corp Hgb Conc 33.1 g/dL (32-36); Mean Corpuscular Volume 89.4 fL (81-99); Mean Platelet Vol. 9.7 fl (6.2-12.0); NRBC Flagged by Analyzer 0 % (0-5); POSITIVE COUNT YES; Platelet Count 256 K/mm3 (150-450); RBC Distribution Width CV 12.3 % (11.6-14.6); RBC Distribution Width SD 40.1 fl (35.1-43.9); Red Blood Count 4.05 M/mm3 (4.2-5.4); White Blood Count 16.0 K/mm3 (4.4-11.0)
[2025-05-03 14:53] LABS: Differential Indicated SCAN CRITERIA MET
[2025-05-03 14:54] LABS: Syphilis Antibodies Nonreactive (Nonreactive)
[2025-05-03] MEDS: Lactated Ringers 1,000 ML 200 ML IV (16:03)
[2025-05-03] MEDS: fentaNYL-bupivacaine (epidural) 100 ML BAG EPIDURAL (16:04)
[2025-05-03] MEDS: Penicillin G 3,000,000 Units 50 ML 100 UNITS IV (17:27)
[2025-05-03] MEDS: Oxytocin 15 Units/NS 250ml 15 UNITS/250 ML IV.SOLN 334 UNITS IV (19:01)
--- NOTE | 2025-05-03 19:25 | OB.VAGDELI_ITS ---
Assessment & Plan (1) (spontaneous vaginal delivery): Maternal Data Information Final FIDELIA: 05/04/25 Gestational age: 39+6 Vaginal Delivery Maternal Presentation Maternal Presentation: Active Labor Type of Induction: Amniotomy Vaginal Delivery Information Procedure Performed: Spontaneous Vaginal Delivery Surgeon/Practitioner: Madeleine Barger Date of Procedure: 05/03/25 Pre-Procedure Diagnosis: Labor Post-Procedure Diagnosis: Type of anesthesia: Epidural Estimated Blood Loss: 200 cc Time of Delivery: 18:56 Findings Description of procedure: Presented in active labor at 5 cm. Progressed to 8 cm at which time she received an epidural. After her second dose of antibiotics was complete she was ruptured for clear fluid and found to be complete. She pushed for 30 minutes and delivered the vertex over an intact perineum. The shoulders delivered spontaneously. The cried immediately and was placed on the maternal abdomen. The cord was clamped and cut after one minute. There were no lacerations. The placenta delivered with gentle traction. All sponge and instrument counts were correct. Presentation: Vertex, MAYDA and CARITO Amniotic Membrane Rupture Type: Artificial Amniotic Fluid Description: Clear Placental Delivery Description: Spontaneous Placenta Disposition: [facility] Specimen collected: No Cord Vessel Description: 3 Vessels Cord Entanglement: None Infant A Gender: Male (1 minute): 9 (5 minute): 9 Delayed Cord Clamping: Yes Security Patrol Driver wetland scientist: No Post Vaginal Deli Medications given after delivery: IV Pitocin Episiotomy Description: None Laceration: None Complication Complications: No
[2025-05-03] MEDS: Oxytocin 15 Units/NS 250ml 15 UNITS/250 ML IV.SOLN 83 UNITS IV (19:47)
--- NOTE | 2025-05-03 20:13 | HP.PCM.OB_ITS ---
HPI - General General Date of Admission: 05/03/25 Date of Service: 05/03/25 Chief Complaint: Labor HPI Narrative ANTWAN WHITE, is a 20 F who presents in active labor. Membranes intact. GBS positive Maternal Data Information Final FIDELIA: 05/04/25 Gestational age: 39+6 [facility] Medical History History of miscarriage Home Medications Medication Instructions Recorded Last Taken Type ferrous sulfate 325 mg (65 mg 325 mg PO DAILY 05/02/25 05/02/25 13:13 History iron) tablet (Feosol) pantoprazole 20 mg tablet,delayed 20 mg PO DAILY 05/0205/02/25 13:13 History release (Protonix) vit no.95-ferrous 1 tab PO DAILY 05/02/2505/16 13:13 History fumarate 28 mg-folic acid 800 mcg tablet () aspirin 81 mg chewable tablet 1 tab PO DAILY 05/03/25 05/02/25 13:14 History (Aspirin Childrens) Allergy/AdvReac Type Severity Reaction Status Date / Time No Known Allergies Allergy Verified 05/03/25 13:10 Social History Smoking Status: Current every day smoker tobacco type: e-cigarettes History 1 Elective abortions Hx Para 0 Spontaneous abortions Hx # Term Pregnancies Ectopic pregnancies Hx # Pregnancies Multiple births # of living children ROS Constitutional Constitutional: Denies fatigue, fever(s) or malaise Eyes Eyes: Denies change in vision ENT HEENT: Denies dizziness or headache(s) Cardiovascular Cardiovascular: Denies chest pain, dyspnea or lightheadedness Respiratory/Chest Respiratory/Chest: Denies cough or dyspnea Gastrointestinal Gastrointestinal: Denies change in bowel habits Genitourinary Genitourinary: Denies burning urination or genital lesions Integumentary Integumentary: Denies rash Neurologic Neurologic: Denies confusion, dizziness, headache(s), numbness or weakness Vital Signs Vital Signs Vital Signs: 05/03/25 12:58 05/03/25 12:58 05/03/25 13:05 Temperature Temperature Source Temporal Pulse Rate 70 Respiratory Rate Blood Pressure 119/75 BP Systolic 119 BP Diastolic 75 Pulse Ox 05/03/25 13:05 05/03/25 13:05 05/03/25 13:05 Temperature 98.3 F Temperature Source Pulse Rate Respiratory Rate 18 Blood Pressure BP Systolic BP Diastolic Pulse Ox 98 05/03/25 14:58 05/03/25 14:58 05/03/25 14:58 Temperature Temperature Source Temporal Pulse Rate 69 Respiratory Rate Blood Pressure 133/86 H BP Systolic 133 BP Diastolic 86 Pulse Ox 05/03/25 14:58 05/03/25 14:58 05/03/25 15:54 Temperature 98.9 F Temperature Source Pulse Rate 77 Respiratory Rate 18 Blood Pressure BP Systolic BP Diastolic Pulse Ox 05/03/25 15:54 05/03/25 15:55 05/03/25 15:55 Temperature Temperature Source Pulse Rate 80 Respiratory Rate Blood Pressure 127/76 H BP Systolic 127 BP Diastolic 76 Pulse Ox 97 05/03/25 15:55 05/03/25 15:59 05/03/25 15:59 Temperature Temperature Source Pulse Rate 78 Respiratory Rate Blood Pressure BP Systolic BP Diastolic Pulse Ox 92 97 05/03/25 16:00 05/03/25 16:00 05/03/25 16:04 Temperature Temperature Source Pulse Rate 71 69 Respiratory Rate Blood Pressure 131/82 H BP Systolic 131 BP Diastolic 82 Pulse Ox 05/03/25 16:04 05/03/25 16:05 05/03/25 16:05 Temperature Temperature Source Pulse Rate 69 Respiratory Rate Blood Pressure 136/85 H BP Systolic 136 BP Diastolic 85 Pulse Ox 100 05/03/25 16:05 05/03/25 16:08 05/03/25 16:08 Temperature Temperature Source Pulse Rate 85 Respiratory Rate 18 Blood Pressure BP Systolic BP Diastolic Pulse Ox 89 05/03/25 16:09 05/03/25 16:09 05/03/25 16:10 Temperature Temperature Source Pulse Rate 74 Respiratory Rate Blood Pressure 137/89 H BP Systolic 137 BP Diastolic 89 Pulse Ox 100 05/03/25 16:10 05/03/25 16:10 05/03/25 16:15 Temperature Temperature Source Pulse Rate 82 Respiratory Rate 18 16 Blood Pressure BP Systolic BP Diastolic Pulse Ox 05/03/25 16:16 05/03/25 16:16 05/03/25 16:16 Temperature Temperature Source Pulse Rate 70 Respiratory Rate Blood Pressure 135/79 H BP Systolic 135 BP Diastolic 79 Pulse Ox 97 05/03/25 16:17 05/03/25 16:17 05/03/25 16:20 Temperature Temperature Source Pulse Rate 80 Respiratory Rate Blood Pressure 135/82 H 134/82 H BP Systolic 135 134 BP Diastolic 82 82 Pulse Ox 05/03/25 16:20 05/03/25 16:20 05/03/25 16:21 Temperature Temperature Source Pulse Rate 73 72 Respiratory Rate 15 Blood Pressure BP Systolic BP Diastolic Pulse Ox 05/03/25 16:21 05/03/25 16:25 05/03/25 16:25 Temperature Temperature Source Pulse Rate 65 Respiratory Rate Blood Pressure 132/80 H BP Systolic 132 BP Diastolic 80 Pulse Ox 100 05/03/25 16:25 05/03/25 16:26 05/03/25 16:26 Temperature Temperature Source Pulse Rate 74 Respiratory Rate 15 Blood Pressure BP Systolic BP Diastolic Pulse Ox 100 05/03/25 16:30 05/03/25 16:30 05/03/25 16:30 Temperature Temperature Source Pulse Rate 74 Respiratory Rate 18 Blood Pressure 127/69 H BP Systolic 127 BP Diastolic 69 Pulse Ox 05/03/25 16:31 05/03/25 16:31 05/03/25 16:35 Temperature Temperature Source Temporal Pulse Rate 65 Respiratory Rate Blood Pressure 127/71 H BP Systolic 127 BP Diastolic 71 Pulse Ox 05/03/25 16:35 05/03/25 16:35 05/03/25 16:58 Temperature 98.4 F Temperature Source Pulse Rate Respiratory Rate 15 Blood Pressure 119/66 BP Systolic 119 BP Diastolic 66 Pulse Ox 05/03/25 16:58 05/03/25 17:01 05/03/25 17:01 Temperature Temperature Source Pulse Rate 66 139 H Respiratory Rate Blood Pressure BP Systolic BP Diastolic Pulse Ox 63 05/03/25 17:02 05/03/25 17:02 05/03/25 17:03 Temperature Temperature Source Pulse Rate 139 H 77 Respiratory Rate Blood Pressure BP Systolic BP Diastolic Pulse Ox 63 05/03/25 17:03 05/03/25 17:03 05/03/25 18:06 Temperature Temperature Source Pulse Rate Respiratory Rate 15 Blood Pressure 113/77 BP Systolic 113 BP Diastolic 77 Pulse Ox 99 05/03/25 18:06 05/03/25 18:06 05/03/25 18:06 Temperature Temperature Source Temporal Pulse Rate 84 Respiratory Rate 15 Blood Pressure BP Systolic BP Diastolic Pulse Ox 05/03/25 18:06 05/03/25 18:06 05/03/25 19:09 Temperature 98.5 F Temperature Source Pulse Rate Respiratory Rate Blood Pressure 115/71 BP Systolic 115 BP Diastolic 71 Pulse Ox 98 05/03/25 19:09 05/03/25 19:24 05/03/25 19:24 Temperature Temperature Source Pulse Rate 83 81 Respiratory Rate Blood Pressure 114/71 BP Systolic 114 BP Diastolic 71 Pulse Ox 05/03/25 19:39 05/03/25 19:39 05/03/25 19:39 Temperature Temperature Source Temporal Pulse Rate 78 Respiratory Rate Blood Pressure 121/73 H BP Systolic 121 BP Diastolic 73 Pulse Ox 05/03/25 19:39 05/03/25 19:39 05/03/25 19:41 Temperature 98.3 F Temperature Source Pulse Rate 74 Respiratory Rate 16 Blood Pressure BP Systolic BP Diastolic Pulse Ox 05/03/25 19:41 05/03/25 19:46 05/03/25 19:46 Temperature Temperature Source Pulse Rate 92 Respiratory Rate Blood Pressure BP Systolic BP Diastolic Pulse Ox 93 95 05/03/25 19:51 05/03/25 19:51 05/03/25 19:54 Temperature Temperature Source Pulse Rate 76 Respiratory Rate Blood Pressure 115/79 BP Systolic 115 BP Diastolic 79 Pulse Ox 96 05/03/25 19:54 05/03/25 19:56 05/03/25 19:56 Temperature Temperature Source Pulse Rate 97 84 Respiratory Rate Blood Pressure BP Systolic BP Diastolic Pulse Ox 95 05/03/25 20:00 05/03/25 20:00 05/03/25 20:01 Temperature Temperature Source Pulse Rate 74 76 Respiratory Rate Blood Pressure BP Systolic BP Diastolic Pulse Ox 94 05/03/25 20:01 05/03/25 20:06 05/03/25 20:06 Temperature Temperature Source Pulse Rate 85 Respiratory Rate Blood Pressure BP Systolic BP Diastolic Pulse Ox 94 95 05/03/25 20:11 05/03/25 20:11 Temperature Temperature Source Pulse Rate 78 Respiratory Rate Blood Pressure BP Systolic BP Diastolic Pulse Ox 96 Weight Weight: 83.007 kg Body Mass Index (BMI) 25.5 Physical Exam Const alert and no apparent distress General Appearance: cooperative HEENT normocephalic Resp normal respiratory effort Cardio regular rate GI soft to palpation GI Narrative: gravid, nontender, appropriate for gestational age Extremity no calf tenderness General Extremity: edema Skin no wounds Rashes: No rashes noted Psych activity/motor behavior normal Labs Labs Labs: Blood Type B POSITIVE Antibody Screen NEGATIVE Hct, (37-47) 36.2 % L Hgb, (12.0-15.0) 12.0 g/dL Obstetrics Ultrasound Syphilis Total Ab, (Nonreactive) Nonreactive Assessment & Plan (1) Positive GBS test: (2) Normal labor: (3) 39 weeks gestation of : PLAN: Plan Admit for labor GBS pos -PCN Desires no epidural
[2025-05-04 00:06] VITALS: BP 120/89; PULSE 72; RESP 16; TEMP 36.9; O2SAT 100
[2025-05-04 04:00] VITALS: BP 112/71; PULSE 71; RESP 15; TEMP 36.6; O2SAT 98
--- NOTE | 2025-05-04 07:23 | PCM.PN.OB ---
Subjective Subjective Doing well. Ambulating and voiding without difficulty. Mild lochia. Breast feeding. Objective Data Objective Data Vital Signs: Vital Signs Temp Pulse Resp BP Pulse Ox O2 Del Method 97.8 F 71 15 112/71 98 Room Air 05/04/25 04:00 05/04/25 04:00 05/04/25 04:00 05/04/25 04:00 05/04/25 04:00 05/04/25 04:00 Oxygen Delivery Method Room Air Weight: 83.007 kg Body Mass Index (BMI) 25.5 Intake & Output: Intake and Output for Last 24 Hours 05/02/25 05/03/25 05/04/25 23:59 23:59 23:59 Intake Total 2228.26 / 2228.26 Output Total 500 / 500 1000 / 1000 Balance 1728.26 / 1728.26 -1000 / -1000 Lab / Micro Data 05/03/25 13:50 Labs: Laboratory Results - last 24 hr 05/03/25 13:50: WBC 16.0 H, RBC 4.05 L, Hgb 12.0, Hct 36.2 L, MCV 89.4, MCH 29.6, MCHC 33.1, RDW Std Deviation 40.1, RDW Coeff of Jaclyn 12.3, Plt Count 256, MPV 9.7, Immature Gran % (Auto) 0.600, Neut % (Auto) 89.2 H, Lymph % (Auto) 6.9 L, [place] % (Auto) 3.0, Eos % (Auto) 0.1, Baso % (Auto) 0.2, Absolute Neuts (auto) 14.3 H, Absolute Lymphs (auto) 1.10, Nucleated RBC % 0, Platelet Estimate ADEQUATE, Syphilis Total Ab Nonreactive, Blood Type B POSITIVE, Antibody Screen NEGATIVE ROS Constitutional Constitutional: Denies headache(s) Cardiovascular Cardiovascular: Denies chest pain or dyspnea Gastrointestinal Gastrointestinal: Denies nausea or vomiting Genitourinary Genitourinary: Denies dysuria Physical Exam Const alert and no apparent distress General Appearance: cooperative and comfortable Eyes PERRL and EOMs intact bilaterally Resp normal respiratory effort GI soft to palpation and non-tender Narrative: Fundus firm, below umbilicus. Uterus Palpation: uterus fundus firm ( below umbilicus) Extremity normal to inspection and full ROM Neuro oriented x3 and CN's II-XII intact bilaterally Psych mental status grossly normal Assessment & Plan (1) (spontaneous vaginal delivery): (2) Positive GBS test: PLAN: Plan discharge expected tomorrow
[2025-05-04 07:40] VITALS: BP 119/91; PULSE 79; RESP 16; TEMP 37.1
[2025-05-04 12:00] VITALS: BP 105/79; PULSE 70; RESP 16; TEMP 36.6
[2025-05-04 15:37] VITALS: BP 97/66; PULSE 75; RESP 16; TEMP 36.7
[2025-05-04 21:05] VITALS: BP 129/89; PULSE 75; RESP 16; TEMP 36.6; O2SAT 99
[2025-05-05 02:00] VITALS: BP 116/66; PULSE 65; RESP 16; TEMP 36.7; O2SAT 100
--- NOTE | 2025-05-05 06:59 | DS.PCM_ITS ---
Providers Date of Admission: 05/03/25 Primary Care Physician: Dr. Vargas Barba, DO Reason For Visit: VAGINAL Diagnosis Discharge Diagnosis (1) (spontaneous vaginal delivery): Status: Acute Code(s): O80 - Encounter for full-term uncomplicated delivery (2) Care and examination of lactating mother: Status: Acute Code(s): Z39.1 - Encounter for care and examination of lactating mother Medications at Discharge Home Medications ferrous sulfate 325 mg (65 mg iron) tablet (Feosol) 325 mg PO DAILY 05/02/25 pantoprazole 20 mg tablet,delayed release (Protonix) 20 mg PO DAILY 05/02/25 vit no.95-ferrous fumarate 28 mg-folic acid 800 mcg tablet () 1 tab PO DAILY 05/02/25 acetaminophen 500 mg tablet 1,000 mg (2 x 500 mg) PO Q6H PRN PRN Pain 1-10 Or Fever #0 tabs 05/05/25 ibuprofen 600 mg tablet 600 mg PO Q6H PRN PRN Pain Score 1-10 #0 tabs 05/05/25 Hospital Course Operations None Procedures None Summary of Care Provided Minutes Spent on Discharge: 15 Hospital Course: Patient had vaginal delivery. Hospital course was uneventful. Physical Exam Narrative Patient seen at bedside. Denies pain. Ambulating and voiding without difficulty. Lochia decreased. Desires discharge home today. Const alert and oriented x3 General Appearance: Negative for in distress HEENT normocephalic Eyes General Eye: normal appearance of both eyes Neck General: normal visual inspection Chest Chest: symmetrical chest wall rise Resp normal respiratory effort and normal air movement Effort and Inspection: symmetric chest movement; Negative for tachypneic Auscultation: clear to auscultation bilaterally Cardio regular rate and regular rhythm Peripheral Pulses: pulses 2+ throughout GI normal to inspection, nondistended, normoactive bowel sounds Narrative: Ice to perineum OB / External & Speculum: vaginal bleeding and other Lochia decreasing Uterus Palpation: uterus fundus firm (Below U) Extremity normal to inspection, full ROM and normal capillary refill Skin no rashes or lesions noted Neuro oriented x3, CN's II-XII intact bilaterally and gait normal Psych mental status grossly normal, thought process normal and activity/motor behavior normal Weight / BMI Weight Weight: 183 lb Body Mass Index (BMI) 25.5 ABG / Lab / Microbiology Data 05/03/25 13:50 D/C Instructions Discharge Activity: Return to Normal Activity, No Restrictions, May Drive, May Shower and May Take a Tub Bath (Warm water only. No bath salts, soaps, bubbles) May resume sexual activity in: 6-8 weeks Weight Bearing Status: Weight bearing as tolerated Call your doctor if you observe: Fever of 101 or Higher, Inability to urinate, Using more than 1 pad per hour, Shortness of breath, Dizziness, Chest pain, Calf discomfort and Uncontrolled pain DC O2, CPAP, BIPAP Needs Home O2 Discharge instructions: No Please Follow Up With: [facility] Carmen ELKINS When: 2 weeks in office or virtual Meaningful Use Info Meaningful Use Meaningful Use Diagnoses (Choose all that apply): None applicable Discharge Plan Admission Admit Date/Time: 05/03/25 13:10 Primary Reason for Your Visit: Labor and Delivery Attending Provider: Madeleine Barger Primary Care Provider: Vargas Barba Discharge Orders/Prescriptions Prescriptions: New acetaminophen 500 mg Tablet 1,000 mg PO Q6H PRN PRN (Reason: Pain 1-10 Or Fever) Qty: 0 0RF ibuprofen 600 mg Tablet 600 mg PO Q6H PRN PRN (Reason: Pain Score 1-10) Qty: 0 0RF Continued PNV no.95-ferrous fumarate-FA [] 28 mg iron- 800 mcg tablet 1 tab PO DAILY pantoprazole [Protonix] 20 mg tablet,delayed release (DR/EC) 20 mg PO DAILY ferrous sulfate [Feosol] 325 mg (65 mg iron) tablet 325 mg PO DAILY Discontinued aspirin [Aspirin Childrens] 81 mg tablet,chewable 1 tab PO DAILY Referrals / Follow Up: Karlie Doran CNM [Med Staff - [facility] Prof, Obstetrics] Vargas Barba DO [Primary Care Provider, Internal Medicine] Disposition Disposition (needs filled in before D/C Order can be placed): Home, Self Care
[2025-05-05 07:52] VITALS: BP 115/83; PULSE 73; RESP 16; TEMP 37.1; O2SAT 100
--- NOTE | 2025-05-09 12:59 | NURSING ---
F/up call performed-- pt. feeling well, denies s+s of complications and states lochia is mild. BF going well, saw after delivery. Only question is about getting hiccups, education reviewed that this can be normal after delivery and as pt's milk is in. Encouragement and support given. Pt. denies further questions or concerns at this time.
== END 2025-05-05 11:11 | disposition home or self-care (01) | DRG 560 ==
LOC: WPOUT 13:15 → WP 19:04
PROVIDERS: Admitting Provider Obstetrics & Gynecology; PCP Family Medicine; Referring Provider Obstetrics & Gynecology; Visit Provider Obstetrics & Gynecology
DX: O98.82 Other maternal infectious and parasitic diseases complicating childbirth (principal); Z37.0 Single live birth; B95.1 Streptococcus, group B, as the cause of diseases classified elsewhere; F17.290 Nicotine dependence, other tobacco product, uncomplicated; O99.334 Smoking (tobacco) complicating childbirth; Z3A.39 39 weeks gestation of pregnancy; Z87.59 Personal history of other complications of pregnancy, childbirth and the puerperium
CPT/HCPCS: 59025; 59050; 85025; 86780; 86850; 86900; 86901; 99221; G0378; J2405